=== PATIENT | female | born 1960 | race Caucasian/White ===

== ENCOUNTER 2018-05-02 08:09 | Emergency (ER) | payer OTHER ==
[~2018-05-02] VITALS: Ht 162.6 cm; Wt 136.4 kg
[~2018-05-02 08:09] MED LIST: ALEVE 220MG220 MG PO; NORCO 325 MG-7.1 TAB PO
[2018-05-02 08:12] VITALS: TEMP 97.5
[2018-05-02] MEDS ORDERED: ALEVE 220MG220 MG PO (08:17)
[2018-05-02] MEDS ORDERED: ZYRTEC 10MG10 MG PO (08:18)
[2018-05-02] MEDS ORDERED: FISH OIL 500 M1 EAC1 PO (08:19)
[2018-05-02] MEDS ORDERED: THERA1 TAB PO (08:19)
[2018-05-02] MEDS ORDERED: ZOFRAN 4MG T4 MG/TAB PO (09:25)
[2018-05-02] MEDS ORDERED: PERCOCET 325 MG1 TA2 PO (09:25)
[2018-05-02] MEDS ORDERED: NORCO 325 MG-51 TAB PO (09:25)
[2018-05-02 12:00] VITALS: BP 129/86; PULSE 70
== END 2018-05-02 12:00 | disposition home or self-care (01) ==
LOC: COL.ER 08:09
DX: S42.351A Displaced comminuted fracture of shaft of humerus, right arm, initial encounter for closed fracture (principal); Z23 Encounter for immunization; W01.190A Fall on same level from slipping, tripping and stumbling with subsequent striking against furniture, initial encounter; Y92.009 Unspecified place in unspecified non-institutional (private) residence as the place of occurrence of the external cause
CPT/HCPCS: J1170; J1885; J2405; J2550; J3010; J7040

== ENCOUNTER 2019-10-29 12:08 | Inpatient (IN) | payer OTHER ==
[~2019-10-29] VITALS: Ht 162.6 cm; Wt 140.2 kg
[~2019-10-29 12:08] MED LIST changes: +FISH OIL 500 M1 EAC1 PO; +NORCO 325 MG-51 TAB PO; +PERCOCET 325 MG1 TA2 PO; +THERA1 TAB PO; +ZOFRAN 4MG T4 MG/TAB PO; +ZYRTEC 10MG10 MG PO
[2019-10-29] MEDS ORDERED: GLUCOPHAGE500 MG/TAB PO (15:30)
[2019-10-29] MEDS ORDERED: CLEOCIN HCL300 MG PO (15:31)
[2019-10-29] MEDS ORDERED: TOBRADEX EYE O3.5 GM OP (15:32)
[2019-10-29 16:20] LABS: BASO % 0.4 % (0.0-2.0); EOS # 0.3 (0.0-0.7); EOS % 4.2 % (0-4.0); GRAN # 4.3 (1.4-6.5); GRAN % 63.5 % (42.2-75.2); HEMATOCRIT 41.8 % (37.0-47.0); HEMOGLOBIN 13.3 g/dl (12.5-16.0); LYMPH # 1.5 (1.2-3.4); LYMPH % 22.9 % (20.0-51.0); MEAN CELL VOLUME 87 fl (80.0-100.0); MEAN CORPUSCULAR HEMOGLOBIN 28 pg (27.0-31.0); MEAN CORPUSCULAR HGB CONC 32 g/dl (33.0-37.0); MEAN PLATELET VOLUME 9.9 fl (7.4-10.4); MONO # 0.6 (0.1-0.6); MONO % 8.6 % (1.7-9.3); PLATELET COUNT 269 K/mm3 (130-400); RED BLOOD COUNT 4.78 M/mm3 (4.10-5.30); REDCELL DISTRIBUTION WIDTH-CV 13.6 % (11.5-14.5)
[2019-10-29 16:34] LABS: ALBUMIN 3.9 gm/dL (3.5-5.0); BILIRUBIN,TOTAL 0.4 mg/dL (0.0-1.0); CALCIUM 9.5 mg/dL (8.4-10.2); CREATININE, serum 0.75 (0.52-1.25); POTASSIUM 3.8 mmol/L (3.4-5.0); TOTAL PROTEIN 7.6 gm/dL (6.4-8.2)
[2019-10-29 16:52] LABS: C-REACTIVE PROTEIN 13.9 mg/dL (0.0-0.9)
[2019-10-29 18:24] VITALS: BP 130/42; PULSE 72; TEMP 97.8
[2019-10-29 20:05] VITALS: BP 134/53; PULSE 70; TEMP 97.5
[2019-10-29] MEDS ORDERED: PATIENTS OWN MED OS (20:38)
[2019-10-29 23:24] VITALS: BP 126/52; PULSE 73; TEMP 97.8
[2019-10-30 04:01] VITALS: BP 119/37; PULSE 74; TEMP 98.3
[2019-10-30 05:12] VITALS: BP 123/52
[2019-10-30 07:18] LABS: CALCIUM 8.3 mg/dL (8.4-10.2); CREATININE, serum 0.59 (0.52-1.25); POTASSIUM 3.9 mmol/L (3.4-5.0)
[2019-10-30 07:21] VITALS: BP 130/49; PULSE 71; TEMP 98.1
[2019-10-30 08:58] LABS: BASO % 0.4 % (0.0-2.0); EOS # 0.3 (0.0-0.7); EOS % 4.1 % (0-4.0); GRAN # 4.7 (1.4-6.5); HEMATOCRIT 36.5 % (37.0-47.0); HEMOGLOBIN 11.5 g/dl (12.5-16.0); LYMPH # 1.4 (1.2-3.4); LYMPH % 19.3 % (20.0-51.0); MEAN CELL VOLUME 88 fl (80.0-100.0); MEAN CORPUSCULAR HEMOGLOBIN 28 pg (27.0-31.0); MEAN CORPUSCULAR HGB CONC 32 g/dl (33.0-37.0); MEAN PLATELET VOLUME 9.6 fl (7.4-10.4); MONO # 0.6 (0.1-0.6); MONO % 8.4 % (1.7-9.3); PLATELET COUNT 246 K/mm3 (130-400); RED BLOOD COUNT 4.14 M/mm3 (4.10-5.30); REDCELL DISTRIBUTION WIDTH-CV 13.5 % (11.5-14.5)
[2019-10-30 12:13] VITALS: BP 142/61; PULSE 64; TEMP 98.2
[2019-10-30 15:47] VITALS: BP 121/76; PULSE 68; TEMP 98.2
[2019-10-30 20:27] VITALS: BP 132/48; PULSE 66; TEMP 97.9
[2019-10-31] VITALS (7 sets, daily range): BP systolic 121–151; BP diastolic 39–66; PULSE 58–92; TEMP 97.9–98.6
[2019-10-31 07:27] LABS: HEMOGLOBIN 11.3 g/dl (12.5-16.0); MEAN CELL VOLUME 87 fl (80.0-100.0); MEAN CORPUSCULAR HEMOGLOBIN 28 pg (27.0-31.0); MEAN CORPUSCULAR HGB CONC 32 g/dl (33.0-37.0); MEAN PLATELET VOLUME 9.6 fl (7.4-10.4); PLATELET COUNT 241 K/mm3 (130-400); RED BLOOD COUNT 4.02 M/mm3 (4.10-5.30); REDCELL DISTRIBUTION WIDTH-CV 13.4 % (11.5-14.5)
[2019-10-31 07:39] LABS: CALCIUM 8.6 mg/dL (8.4-10.2); CREATININE, serum 0.65 (0.52-1.25); POTASSIUM 3.6 mmol/L (3.4-5.0)
[2019-10-31 08:15] LABS: BAND 5 % (0-10); EOSINOPHIL 5 % (0-4); LYMPHOCYTE 27 % (20.0-51.0); METAMYELOCYTE 1 % (0-0); NEUTROPHILS 60 % (42.0-75.2); PLATELET ESTIMATE NORMAL (NORMAL)
[2019-11-01 03:58] VITALS: BP 117/52; PULSE 66; TEMP 97.5
[2019-11-01 08:24] VITALS: BP 128/60; PULSE 68; TEMP 97.8
[2019-11-01] MEDS ORDERED: DOXYCYCLINE 10100 MG PO (11:28)
== END 2019-11-01 15:01 | disposition home or self-care (01) | DRG 603 ==
LOC: COL.ER 12:08 → SURG 16:37
PROVIDERS: Emergency Medicine; Physician Assistant; ADMIT Student in an Organized Health Care Education/Training Program
DX: L03.116 Cellulitis of left lower limb (principal); E11.9 Type 2 diabetes mellitus without complications; Z79.84 Long term (current) use of oral hypoglycemic drugs; Z88.5 Allergy status to narcotic agent; Z88.0 Allergy status to penicillin; Z88.2 Allergy status to sulfonamides
CPT/HCPCS: 99222-AI; 99231-AI; 99239; A4216; J0692; J0696; J1650; J3370; J7030; J7040; J7050

== ENCOUNTER 2020-01-23 15:15 | Outpatient (RCR) | payer OTHER ==
[~2020-01-23 15:15] MED LIST changes: +CLEOCIN HCL300 MG PO; +DOXYCYCLINE 10100 MG PO; +GLUCOPHAGE500 MG/TAB PO; +PATIENTS OWN MED OS; +TOBRADEX EYE O3.5 GM OP
== END 2020-03-13 | disposition home or self-care (01) ==
LOC: MKS.ESL.PT
DX: L03.116 Cellulitis of left lower limb (principal); I89.0 Lymphedema, not elsewhere classified

== ENCOUNTER → 2020-10-28 | Outpatient (CLI) | payer OTHER | LOC: MC.RAD 16:45 | DX: Z12.31 Encounter for screening mammogram for malignant neoplasm of breast (principal) ==

== ENCOUNTER → 2022-01-18 | Outpatient (CLI) | payer OTHER | LOC: MC.RAD 11-23 11:30 | DX: Z12.31 Encounter for screening mammogram for malignant neoplasm of breast (principal) ==